=== PATIENT | female | born 1985 | race Caucasian/White ===

== ENCOUNTER 2017-07-25 23:05 | Emergency (ER) | payer OTHER ==
[~2017-07-25] VITALS: Ht 167.6 cm; Wt 135.0 kg
[2017-07-25 23:06] VITALS: BP 122/79; PULSE 82; RESP 16; TEMP 98.2; O2SAT 100
[2017-07-25] MEDS ORDERED: STEROID CREAM (23:20)
[2017-07-25] MEDS ORDERED: HYDR-755 PO (23:20)
--- NOTE | 2017-07-25 23:30 | PD ---
HPI Chief Complaint: Abdominal Pain Time Seen by Provider: 23:25 Travel History International Travel<30 days: No Contact w/Intl Traveler<30days: No Traveled to known affect area: No History of Present Illness HPI The patient is a 32 year old female who presents to the [facility] emergency department with a history of upper abdominal pain that began 3 days ago and then today she began to have nausea and vomiting. She has vomited x4 today. She denies diarrhea. She last moved her bowels earlier today. No blood in her stool. The patient denies any history of fever, cough, neck pain, chest pain, shortness of breath, diarrhea, urinary symptoms, or neurologic symptoms. LMP 11/10, irregular cycles. PFSH Past Medical History Narrative Medical The patient's past medical history is significant for irregular menstrual cycles. , c-sections x 2. Medical History: Denies Significant Hx ?: Unknown LMP: 05-19-17 Past Surgical History Narrative Surgical The patient's past surgical history is significant for c-sections x2, cholecystectomy, tonsils and adenoidectomy, wisdom teeth extraction. Section: Yes Tonsillectomy: Yes Social History Alcohol Use: No Tobacco Use: No Substance Use: No Allergies-Medications (Allergen,Severity, Reaction): Coded Allergies: acetaminophen (Verified Allergy, Unknown, 07/25/17) amoxicillin (Verified Allergy, Unknown, 07/25/17) azithromycin (Verified Allergy, Unknown, 07/25/17) clavulanic acid (Verified Allergy, Unknown, 07/25/17) oxycodone (Verified Allergy, Unknown, 07/25/17) Reported Meds & Prescriptions Reported Meds & Active Scripts Active Zofran Odt (Ondansetron Odt) 4 Mg Tab 4 Mg SL Q6HR PRN Terazol 7 Vaginal Cream (Terconazole Vaginal Cream) 0.4 % Cream 1 Appl VAGINAL HS 7 Days 1 applicatorful intravaginally x 7 nights Macrobid (Nitrofurantoin Monoh/Nitrofur Macro) 100 Mg Cap 100 Mg PO BID 7 Days Reported [Steroid Cream] 1 Appl .XX Hydroxyzine HCl 10 Mg Tab 10 Mg PO BID Review of Systems General / Constitutional: No: Fever Eyes: No: Visual changes HENT: No: Headaches Cardiovascular: No: Chest Pain or Discomfort Respiratory: No: Shortness of Breath Gastrointestinal: Positive: Nausea, Vomiting, Abdominal Pain Genitourinary: No: Dysuria, Pelvic Pain, Discharge, Vaginal Bleeding Musculoskeletal: No: Pain Skin: No Rash Neurologic: No: Weakness Psychiatric: No: Depression Endocrine: No: Polydipsia Hematologic/Lymphatic: No: Easy Bruising Physical Exam Narrative General: The patient is a well-developed well-nourished female in no acute distress. Head and Neck exam: Head is normocephalic atraumatic. Eyes: EOMI, pupils are equal round and reactive to light. Nose: Midline septum with pink mucous membranes Mouth: Dentition unremarkable. Moist mucus membranes. Posterior oropharynx is not erythematous. No tonsillar hypertrophy. Uvula midline. Airway patent. Neck: No palpable lymphadenopathy. No nuchal rigidity. No thyromegaly. Cardiovascular: Regular rate and rhythm without murmurs, gallops, or rubs. Lungs: Clear to auscultation bilaterally. No wheezes, rhonchi, or rales. Abdomen: Soft, with reported midepigastric tenderness on palpation. No other tenderness on palpation of the other quadrants of the abdomen. No guarding, rebound, or rigidity. Normal bowel sounds are audible. No tenderness on palpation of McBurney's point. Negative Phillips sign. Extremities: No clubbing, cyanosis, or edema. 2+ pulses in all 4 extremities. No calf tenderness on palpation. Back: No costovertebral angle tenderness to palpation. Neurologic Exam: Grossly nonfocal. Skin Exam: No rash noted. Intact skin that is warm and dry. Gynecologic exam: The patient was placed in the dorsal lithotomy position. Her external genitalia were examined. She had no evidence of rash or lesions. The speculum was placed into her vagina and the cervix was identified. She had a physiologic appearing white. Mild cervical friability is noted. On Bimanual exam: she has no cervical motion tenderness. No adnexal tenderness or prominence noted on palpation. No uterine tenderness or enlargement noted on palpation. However, the patient is morbidly obese and the adnexa palpation and uterus palpation is difficult to discern due to her abdominal girth Data Data Last Documented VS Vital Signs Date Time Temp Pulse Resp B/P (MAP) Pulse Ox O2 Delivery O2 Flow Rate FiO2 07/26/17 03:04 70 18 117/67 (84) 99 Room Air 07/25/17 23:06 98.2 Orders Orders Complete Blood Count With Diff (07/25/17 23:28) Comprehensive Metabolic Panel (07/25/17 23:28) C-Reactive Protein (Crp) (07/25/17 23:28) Lipase (07/25/17 23:28) Urinalysis - C+S If Indicated (07/25/17 23:28) Chest, Single Ap (07/25/17 23:28) Iv Access Insert/Monitor (07/25/17 23:28) Ecg Monitoring (07/25/17 23:28) Oximetry (07/25/17 23:28) Ed Urine Pregnancytest Poc (07/25/17 23:28) Gc And Chlamydia Pcr (07/25/17 23:42) Complete Rh (07/25/17 23:42) Wet Prep Profile (07/25/17 23:42) Beta Hcg (Quant/Titer) (07/25/17 23:40) Sodium Chlor 0.9% 1000 Ml Inj (Ns 1000 M (07/26/17 00:30) Ondansetron Inj (Zofran Inj) (07/26/17 00:30) Us Pelvis (Ques Pr/Ect)W Trans (07/26/17 ) Ceftriaxone Inj (Rocephin Inj) (07/26/17 02:15) Labs Laboratory Tests Test 07/25/17 23:40 07/26/17 00:30 White Blood Count 12.3 TH/MM3 Red Blood Count 4.11 MIL/MM3 Hemoglobin 10.9 GM/DL Hematocrit 32.8 % Mean Corpuscular Volume 79.9 FL Mean Corpuscular Hemoglobin 26.5 PG Mean Corpuscular Hemoglobin Concent 33.2 % Red Cell Distribution Width 15.9 % Platelet Count 334 TH/MM3 Mean Platelet Volume 8.8 FL Neutrophils (%) (Auto) 74.5 % Lymphocytes (%) (Auto) 16.9 % Monocytes (%) (Auto) 6.9 % Eosinophils (%) (Auto) 1.1 % Basophils (%) (Auto) 0.6 % Neutrophils # (Auto) 9.2 TH/MM3 Lymphocytes # (Auto) 2.1 TH/MM3 Monocytes # (Auto) 0.9 TH/MM3 Eosinophils # (Auto) 0.1 TH/MM3 Basophils # (Auto) 0.1 TH/MM3 CBC Comment DIFF FINAL Differential Comment Urine Color YELLOW Urine Turbidity HAZY Urine pH 7.0 Urine Specific [place]inger 1.025 Urine Protein TRACE mg/dL Urine Glucose (UA) NEG mg/dL Urine Ketones NEG mg/dL Urine Occult Blood NEG Urine Nitrite NEG Urine Bilirubin NEG Urine Urobilinogen LESS THAN 2.0 MG/DL Urine Leukocyte Esterase NEG Urine RBC 1 /hpf Urine WBC 1 /hpf Urine Squamous Epithelial Cells 2 /hpf Urine Amorphous Sediment RARE Urine Bacteria RARE /hpf Urine Mucus FEW /lpf Microscopic Urinalysis Comment CULT NOT INDICATED Clue Cells (Wet Prep) NONE SEEN Vaginal Trichomonas (Wet Prep) NONE SEEN Vaginal Yeast (Wet Prep) PRESENT Blood Urea Nitrogen 11 MG/DL Creatinine 0.42 MG/DL Random Glucose 81 MG/DL Total Protein 7.0 GM/DL Albumin 2.8 GM/DL Calcium Level 8.3 MG/DL Alkaline Phosphatase 82 U/L Aspartate Amino Transf (AST/SGOT) 23 U/L Alanine Aminotransferase (ALT/SGPT) 29 U/L Total Bilirubin 0.1 MG/DL Sodium Level 137 MEQ/L Potassium Level 3.7 MEQ/L Chloride Level 106 MEQ/L Carbon Dioxide Level 22.4 MEQ/L Anion Gap 9 MEQ/L Estimat Glomerular Filtration Rate 175 ML/MIN C-Reactive Protein 3.76 MG/DL Lipase 89 U/L Human Chorionic Gonadotropin, Quant 537391 MIU/ML Chlamydia trachomatis DNA (PCR) NOT DETECTED Neisseria gonorrhoeae DNA (PCR) NOT DETECTED MDM Medical Decision Making Medical Screen Exam Complete: Yes Emergency Medical Condition: Yes Medical Record Reviewed: Yes Interpretation(s) Last Impressions Pelvis Ultrasound 07/26/17 0000 Signed Impressions: Service Date/Time: Wednesday, July 26, 2017 01:36 - CONCLUSION: Single live intrauterine gestation at 11 weeks zero days. Javier Wolfe MD Chest X-Ray 07/25/17 2328 Signed Impressions: Service Date/Time: Tuesday, July 25, 2017 23:33 - CONCLUSION: No acute disease. Javier Wolfe MD Differential Diagnosis Viral syndrome, versus gastroenteritis, versus pancreatitis, versus biliary colic, versus acute cholecystitis, versus ectopic Narrative Course During the course of the patients emergency department visit, the patients history, examination, and differential diagnosis were reviewed with the patient. The patient was placed on a monitoring manager with oximetry and frequent blood pressure monitoring. The patient had IV access obtained and blood work sent for analysis. The patient had a bedside test done that was positive. An ultrasound has been ordered to evaluate for and rule out ectopic . The patient was initially provided normal saline 1 L IV fluid bolus, Zofran 4 mg IV. The patients laboratory studies were reviewed and remarkable for a white count of 12.3, hemoglobin 10.9, platelets 334, neutrophils 74.5, CMP is remarkable for a creatinine of 0.42, calcium 8.3, total bilirubin 0.1, C-reactive protein 3.76, lipase 89, beta hCG is 100,015, blood type is AB+, urinalysis shows rare bacteria, Rocephin 1 g IV was administered. Wet prep is positive for yeast. GC and chlamydia were not detected. Radiology studies were reviewed and remarkable for an ultrasound that shows a single live intrauterine with heart activity noted. No evidence of ectopic . The patient will be discharged home with a prescription for Zofran, Terazol for yeast, and Macrobid for bacteriuria in . She is instructed to follow- up with an oncology registrar as soon as possible. The patient is resting comfortably and feels better, is alert and in no distress. The patients results and examination findings were discussed with the patient. The repeat examination is unremarkable and benign. The history, exam, diagnostic testing, and current condition do not suggest any significant pathology to warrant further testing, continued ED treatment, admission, or surgical evaluation at this point. The vital signs have been stable. The patient does not have uncontrollable pain, intractable vomiting, or other significant symptoms. The patient's condition is stable and appropriate for discharge. The patient will pursue further outpatient evaluation with a primary care physician or other designated or consulting physician as indicated in the discharge instructions. The patient expressed understanding and was agreeable with this plan. Diagnosis Primary Impression: Abdominal pain Qualified Codes: R10.13 - Epigastric pain Additional Impressions: Qualified Codes: Z3A.11 - 11 weeks gestation of Vomiting Qualified Codes: R11.2 - Nausea with vomiting, unspecified Bacteriuria during Yeast vaginitis Referrals: [facility] 3 days Lube Technician 3 days Patient Instructions: Abdominal Pain (ED), Abdominal Pain in (ED), Acute Nausea and Vomiting (ED), General Instructions, Urinary Tract Infection in (ED), Vulvovaginal Candidiasis (ED) Med/Other Pt SpecificInfo: Prescription(s) given Scripts Ondansetron Odt (Zofran Odt) 4 Mg Tab 4 MG SL Q6HR Y for Nausea/Vomiting, #7 TAB 0 Refills Prov: Carolyn Renner MD 07/26/17 Terconazole Vaginal Cream (Terazol 7 Vaginal Cream) 0.4 % Cream 1 APPL VAGINAL HS for Fungal Infection for 7 Days, #45 GM 0 Refills 1 applicatorful intravaginally x 7 nights Prov: Carolyn Renner MD 07/26/17 Nitrofurantoin Monohydrate Macrocrystals (Macrobid) 100 Mg Cap 100 MG PO BID for Infection for 7 Days, #14 CAP 0 Refills Prov: Carolyn Renner MD 07/26/17 Disposition: 01 DISCHARGE HOME Condition: Stable Carolyn Renner MD Jul 25, 2017 23:30
[2017-07-25 23:53] VITALS: O2SAT 99
--- NOTE | 2017-07-26 | RADRPT ---
EXAM DATE/TIME: 07/25/2017 23:33 [facility] COMPARISON: No previous studies available for comparison. INDICATIONS : Lower chest pain. MEDICAL HISTORY : None. SURGICAL HISTORY : None. ENCOUNTER: Initial ACUITY: 1 day PAIN SCORE: 5/10 LOCATION: Bilateral chest FINDINGS: A single view of the chest demonstrates the lungs to be symmetrically aerated without evidence of mas s, infiltrate or effusion. The cardiomediastinal contours are unremarkable. Osseous structures are intact. CONCLUSION: No acute disease. Javier Wolfe MD on July 25, 2017 at 23:57 Board Certified Radiologist. This report was verified electronically.
[2017-07-26 00:01] LABS: AUTOMATED NEUTROPHIL # 9.2 TH/MM3 (1.8-7.7); BASOPHIL # 0.1 TH/MM3 (0-0.2); BASOPHIL % 0.6 % (0.0-2.0); EOSINOPHIL # 0.1 TH/MM3 (0-0.4); EOSINOPHIL % 1.1 % (0.0-4.0); HEMATOCRIT 32.8 % (35.0-46.0); HEMOGLOBIN 10.9 GM/DL (11.6-15.3); LYMPH % 16.9 % (9.0-44.0); LYMPHOCYTE # 2.1 TH/MM3 (1.0-4.8); MEAN CELL VOLUME 79.9 FL (80.0-100.0); MEAN CORPUSCULAR HEMOGLOBIN 26.5 PG (27.0-34.0); MEAN CORPUSCULAR HGB CONC 33.2 % (32.0-36.0); MEAN PLATELET VOLUME 8.8 FL (7.0-11.0); MONO % 6.9 % (0.0-8.0); MONOCYTE # 0.9 TH/MM3 (0-0.9); NEUT % 74.5 % (16.0-70.0); PLATELET COUNT 334 TH/MM3 (150-450); RED BLOOD COUNT 4.11 MIL/MM3 (4.00-5.30); RED CELL DISTRIBUTION WIDTH 15.9 % (11.6-17.2); WHITE BLOOD COUNT 12.3 TH/MM3 (4.0-11.0)
[2017-07-26 00:06] LABS: AMORPHOUS SEDIMENT, URINE RARE; BACTERIA, URINE RARE /hpf; BILIRUBIN, URINE NEG (NEG); BLOOD, URINE NEG (NEG); GLUCOSE,URINE NEG (NEG); KETONE, URINE NEG (NEG); MUCUS URINE FEW /lpf (OCC); NITRITE,URINE NEG (NEG); SQUAMOUS EPITHELIAL CELL URINE 2 /hpf (0-5); URINE COLOR YELLOW (YELLW/STRAW); URINE LEUKOCYTE ESTERASE NEG (NEG)
[2017-07-26] MEDS ORDERED: ONDANSETRON HCL 4 MG/2 ML VIAL IV ONE (00:30)
[2017-07-26] MEDS ORDERED: SODIUM CHLOR 0.9% 1000 ML INJ 1,000 ML IV ONE (00:30)
[2017-07-26 01:23] LABS: ALBUMIN 2.8 GM/DL (3.4-5.0); ALT (GPT) 29 U/L (10-53); AST (GOT) 23 U/L (15-37); BICARBONATE 22.4 MEQ/L (21.0-32.0); BLOOD UREA NITROGEN 11 MG/DL (7-18); CALCIUM 8.3 MG/DL (8.5-10.1); CHLORIDE 106 MEQ/L (98-107); CREATININE 0.42 MG/DL (0.50-1.00); GLOMERULAR FILTRATION RATE 175 ML/MIN (>89); GLUCOSE,RANDOM 81 MG/DL (74-106); LIPASE 89 U/L (73-393); SODIUM (NA) 137 MEQ/L (136-145)
[2017-07-26 01:40] LABS: ALKALINE PHOSPHATASE 82 U/L (45-117); C-REACTIVE PROTEIN 3.76 MG/DL (0.00-0.30); TOTAL BILIRUBIN ADULT 0.1 MG/DL (0.2-1.0)
[2017-07-26] MEDS ORDERED: TERC.4%V VAGINAL (02:09)
[2017-07-26] MEDS ORDERED: MACR100C2 PO (02:09)
[2017-07-26] MEDS ORDERED: ZOFR4TAB3 SL (02:10)
[2017-07-26] MEDS ORDERED: cefTRIAXone INJ 1,000 MG in SODIUM CHLORIDE 0.9% INJ 100 ML IV ONE (02:15)
--- NOTE | 2017-07-26 02:37 | RADRPT ---
EXAM DATE/TIME: 07/26/2017 01:36 [facility] COMPARISON: No previous studies available for comparison. INDICATIONS : Pelvic pain. LAB(S): Beta-hC,015 MEDICAL HISTORY : . SURGICAL HISTORY : section. Cholecystectomy. Tonsillectomy. ENCOUNTER: Initial ACUITY: 3 days PAIN SCORE: 5/10 LOCATION: Bilateral pelvis MEASUREMENTS: UTERUS: 11.6 x 9.1 x 7.5 cm ENDOMETRIAL STRIPE: 20 mm RIGHT OVARY: 2.0 x 1.9 x 1.3 cm LEFT OVARY: 2.7 x 2.4 x 1.8 cm FREE FLUID: No CROWN RUMP LENGTH: 4.2 cm = 11 WKS 0 DAYS FHR: 155 BPM FINDINGS: UTERUS: There is a live intrauterine gestation at 11 weeks zero days identified. There are small nabothian cy sts in the cervix. There is a 1.9 x 1.8 x 1.7 cm suspected uterine leiomyoma at the right uterine bod y. RIGHT OVARY: Ovary contains no mass or significant cystic lesion. LEFT OVARY: Ovary contains no mass or significant cystic lesion. MISCELLANEOUS: No free fluid. CONCLUSION: Single live intrauterine gestation at 11 weeks zero days. Javier Wolfe MD on July 26, 2017 at 2:33 Board Certified Radiologist. This report was verified electronically.
[2017-07-26 03:04] VITALS: BP 117/67; PULSE 70; RESP 18; O2SAT 99
== END 2017-07-26 03:20 | disposition home or self-care (01) ==
LOC: NEPE 23:05
DX: O26.891 Other specified pregnancy related conditions, first trimester (principal); R10.13 Epigastric pain; O98.811 Other maternal infectious and parasitic diseases complicating pregnancy, first trimester; B37.3 Candidiasis of vulva and vagina; O21.9 Vomiting of pregnancy, unspecified; Z3A.11 11 weeks gestation of pregnancy
CPT/HCPCS: 71045; 76700; 76817; 80053; 81001; 83690; 84702; 84703; 85025; 86140; 86901; 87210; 87491; 87591; 96361; 96365; 96375; 99285; J0696; J2405; J7030